=== PATIENT | male | born 1980 | race African-American/Black ===

== ENCOUNTER 2018-04-26 23:15 | Emergency (ER) | payer BC ==
[2018-04-26 23:51] LABS: Absolute Lymphocytes (CBC) 3.1 K/uL (0.7-4.9); Absolute Monocytes 0.8 K/uL (0.1-1.3); Absolute Neutrophil 6.5 K/uL (1.8-8.0); Basophils % 1.2 % (0-1.3); Hematocrit 47.4 % (39.6-49.0); Lymphocytes % 28.1 % (15.3-44.8); MPV 7.9 fL (7.6-11.3); Monocytes % 7.5 % (3.3-12.3)
[2018-04-26 23:54] LABS: Protime INR 0.96
[2018-04-27 00:10] LABS: ALT/SGPT 58 U/L (12-78); AST/SGOT 26 U/L (15-37); Albumin 3.9 g/dL (3.4-5.0); Alkaline Phosphatase 49 U/L (45-117); BUN Blood Urea Nitrogen 11 mg/dL (7-18); Bicarbonate 26 mmol/L (21-32); Bilirubin Direct < 0.1 mg/dL (0-0.2); Bilirubin Total 0.3 mg/dL (0.2-1.0); Glucose Level 104 mg/dL (74-106); Potassium 3.6 mmol/L (3.5-5.1); Protein, Total 7.3 g/dL (6.4-8.2); Sodium Level 140 mmol/L (136-145); Troponin (Emerg Dept Use Only) < 0.02 ng/mL (0.0-0.045)
[2018-04-27 00:16] LABS: NT PRO-BNP < 5 pg/mL (<125)
[2018-04-27 01:03] LABS: Urine Blood NEGATIVE (NEG); Urine Glucose NEGATIVE (NEG); Urine Protein NEGATIVE (NEG); Urine pH 5.5 (5.0-7.0)
[2018-04-27 01:04] LABS: Barbiturates NEGATIVE (NEGATIVE); Benzodiazepines NEGATIVE (NEGATIVE); Cocaine NEGATIVE (NEGATIVE); METHAMPHETAM NEGATIVE (NEGATIVE); Methadone NEGATIVE (NEGATIVE); Opiates NEGATIVE (NEGATIVE); Phencyclidine NEGATIVE (NEGATIVE); THC Cannibis NEGATIVE (NEGATIVE)
--- NOTE | 2018-04-27 01:49 | EDPHYS ---
Physician Documentation [facility] Name: Narendra Camacho Age: 38 yrs Sex: Male : 1980 Arrival Date: 04/26/2018 Time: 23:16 Bed 4 Private MD: Tank Rodriguez H ED Physician Luis Gutiérrez HPI: 04/26 23:48 This 38 yrs old Black Male presents to ER via Ambulatory with complaints of Chest Pain. pkl 23:48 The patient or guardian reports chest pain that is located primarily in the substernal pkl area, epigastric area. Onset: just prior to arrival, 1 hour(s) ago, and improved. The pain does not radiate. Associated signs and symptoms: The patient has no apparent associated signs or symptoms. The chest pain is described as tightness. Patient said he felt lightheaded several days ago. Historical: - Allergies: 23:27 No Known Allergies; bb - Home Meds: 23:27 Lisinopril Oral [Active]; bb - PMHx: 23:27 Hypertension; bb - PSHx: 23:27 None; bb - Immunization history:: Adult Immunizations up to date. - Social history:: Smoking status: Patient uses tobacco products, smokes one-half pack cigarettes per day, Patient/guardian denies using alcohol, street drugs. - Ebola Screening: : No symptoms or risks identified at this time. ROS: 23:48 Eyes: Negative for injury, pain, redness, and discharge, ENT: Negative for injury, pkl pain, and discharge, Neck: Negative for injury, pain, and swelling. 23:48 Cardiovascular: Positive for chest pain. 23:48 Respiratory: Negative for cough, shortness of breath. 23:48 Abdomen/GI: Negative for abdominal pain, nausea, vomiting, and diarrhea. 23:48 Back: Negative for acute changes. 23:48 : Negative for urinary symptoms. 23:48 MS/extremity: Negative for acute changes. 23:48 Skin: Negative for rash. 23:48 Neuro: Negative for altered mental status. Exam: 23:48 Head/Face: Normocephalic, atraumatic. Eyes: Pupils equal round and reactive to light, pkl extra-ocular motions intact. Lids and lashes normal. Conjunctiva and sclera are non-icteric and not injected. Cornea within normal limits. Periorbital areas with no swelling, redness, or edema. ENT: Nares patent. No nasal discharge, no septal abnormalities noted. Tympanic membranes are normal and external auditory canals are clear. Oropharynx with no redness, swelling, or masses, exudates, or evidence of obstruction, uvula midline. Mucous membranes moist. Neck: Trachea midline, no thyromegaly or masses palpated, and no cervical lymphadenopathy. Supple, full range of motion without nuchal rigidity, or vertebral point tenderness. No Meningismus. Chest/axilla: Normal chest wall appearance and motion. Nontender with no deformity. No lesions are appreciated. Cardiovascular: Regular rate and rhythm with a normal S1 and S2. No gallops, murmurs, or rubs. Normal PMI, no JVD. No pulse deficits. Respiratory: Lungs have equal breath sounds bilaterally, clear to auscultation and percussion. No rales, rhonchi or wheezes noted. No increased work of breathing, no retractions or nasal flaring. Abdomen/GI: Soft, non-tender, with normal bowel sounds. No distension or tympany. No guarding or rebound. No evidence of tenderness throughout. Back: No spinal tenderness. No costovertebral tenderness. Full range of motion. Skin: Warm, dry with normal turgor. Normal color with no rashes, no lesions, and no evidence of cellulitis. MS/ Extremity: Pulses equal, no cyanosis. Neurovascular intact. Full, normal range of motion. Neuro: Awake and alert, GCS 15, oriented to person, place, time, and situation. Cranial nerves II-XII grossly intact. Motor strength 5/5 in all extremities. Sensory grossly intact. Cerebellar exam normal. Normal gait. Vital Signs: 23:27 BP 148 / 97; Pulse 98; Resp 16 S; Temp 98.3(O); Pulse Ox 97% on R/A; Weight 104.33 kg bb (R); Height 5 ft. 6 in. (167.64 cm) (R); Pain 3/10; 04/27 00:39 BP 135 / 77; Pulse 70; Resp 22; Temp 98.3; Pulse Ox 97% on R/A; Pain 0/10; ak1 04/26 23:27 Body Mass Index 37.12 (104.33 kg, 167.64 cm) bb MDM: 04/26 23:22 Patient medically screened. [facility] 04/27 01:30 Data reviewed: vital signs, nurses notes, lab test result(s), EKG, radiologic studies. [facility] 04/26 23:35 Order name: Basic Metabolic Panel; Complete Time: 00:41 04/26 23:35 Order name: CBC with Diff; Complete Time: 00:41 04/26 23:35 Order name: LFT's; Complete Time: 00:41 04/26 23:35 Order name: Magnesium; Complete Time: 00:41 04/26 23:35 Order name: NT PRO-BNP; Complete Time: 00:41 04/26 23:35 Order name: PT-INR; Complete Time: 00:41 04/26 23:35 Order name: Troponin (emerg Dept Use Only); Complete Time: 00:41 04/26 23:35 Order name: XRAY Chest (1 view) 04/26 23:35 Order name: EKG; Complete Time: 23:36 04/26 23:51 Order name: UDS; Complete Time: 01:10 [facility] 04/26 23:51 Order name: D-Dimer; Complete Time: 00:41 [facility] 04/27 00:56 Order name: Urine Dipstick--Ancillary (enter results); Complete Time: 01:10 [facility] 04/27 00:57 Order name: Troponin (emerg Dept Use Only); Complete Time: 01:46 [facility] 04/26 23:35 Order name: Cardiac monitoring; Complete Time: 23:42 04/26 23:35 Order name: EKG - Nurse/Tech; Complete Time: 23:42 04/26 23:35 Order name: IV Saline Lock; Complete Time: 23:42 04/26 23:35 Order name: Labs collected and sent; Complete Time: 23:57 04/26 23:35 Order name: O2 Per Protocol; Complete Time: 23:42 04/26 23:35 Order name: O2 Sat Monitoring; Complete Time: 23:42 bb Administered Medications: No medications were administered Disposition: 04/27/18 01:48 Discharged to Home. Impression: Chest pain. - Condition is Stable. - Medication Reconciliation Form, Thank You Letter, Antibiotic Education, Prescription Opioid Use form. - Follow up: Ghassan Hayes MD; When: 2 - 3 days; Reason: Re-evaluation by your physician. - Problem is new. - Symptoms are resolved. Signatures: Dispatcher [employer] EDLuis Palacios MD MD pkl Stephanie Ulrich, OSVALDO RN Karishma Cummings RN RN ak1 Corrections: (The following items were deleted from the chart) 02:09 01:48 04/27/2018 01:48 Discharged to Home. Impression: Chest pain. Condition is Stable. ak1 Forms are Medication Reconciliation Form, Thank You Letter, Antibiotic Education, Prescription Opioid Use. Follow up: Ghassan Hayes; When: 2 - 3 days; Reason: Re-evaluation by your physician. Problem is new. Symptoms are resolved. pkl
--- NOTE | 2018-04-27 01:49 | ER ---
Nurse's Notes [facility] Name: Narendra Camacho Age: 38 yrs Sex: Male : 1980 Arrival Date: 04/26/2018 Time: 23:16 Bed 4 Private MD: Tank Rodriguez H Diagnosis: Chest pain Presentation: 04/26 23:23 Presenting complaint: Patient states: he was passenger in car going home and started bb having chest pain approx 30 mins ago although chest pain has decreased now denies nausea, vomiting, fever, spouse states pt has been feeling light-headed for the last several days. Transition of care: patient was not received from another setting of care. Onset of symptoms was April 26, 2018. Risk Assessment: Do you want to hurt yourself or someone else? Patient reports no desire to harm self or others. Initial Sepsis Screen: Does the patient meet any 2 criteria? No. Patient's initial sepsis screen is negative. Does the patient have a suspected source of infection? No. Patient's initial sepsis screen is negative. Care prior to arrival: None. 23:23 Method Of Arrival: Ambulatory bb 23:23 Acuity: DIOR 3 bb Triage Assessment: 23:38 General: Appears in no apparent distress. Behavior is calm, cooperative. Pain: Denies ak1 pain. EENT: No signs and/or symptoms were reported regarding the EENT system. Neuro: No deficits noted. 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 pt denies pain at this time. pt denies N/V. pt denies SOB. Respiratory: No deficits noted. GI: No signs and/or symptoms were reported involving the gastrointestinal system. : No signs and/or symptoms were reported regarding the genitourinary system. Derm: No signs and/or symptoms reported regarding the dermatologic system. Musculoskeletal: No signs and/or symptoms reported regarding the musculoskeletal system. Historical: - Allergies: 23:27 No Known Allergies; bb - Home Meds: 23:27 Lisinopril Oral [Active]; bb - PMHx: 23:27 Hypertension; bb - PSHx: 23:27 None; bb - Immunization history:: Adult Immunizations up to date. - Social history:: Smoking status: Patient uses tobacco products, smokes one-half pack cigarettes per day, Patient/guardian denies using alcohol, street drugs. - Ebola Screening: : No symptoms or risks identified at this time. Screenin:35 Abuse screen: Denies threats or abuse. Denies injuries from another. Nutritional ak1 screening: No deficits noted. Tuberculosis screening: No symptoms or risk factors identified. Fall Risk None identified. Assessment: 23:35 General: Appears in no apparent distress. Pain: pt stated pain has resolved. 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 pt denies N/V. pt denies SOB Pain began 1 hour ago. Neuro: No deficits noted. Cardiovascular: Reports chest pain, epigastric pain Capillary refill < 3 seconds. Respiratory: No deficits noted. GI: No signs and/or symptoms were reported involving the gastrointestinal system. : No signs and/or symptoms were reported regarding the genitourinary system. EENT: No signs and/or symptoms were reported regarding the EENT system. Derm: No signs and/or symptoms reported regarding the dermatologic system. Musculoskeletal: No signs and/or symptoms reported regarding the musculoskeletal system. 04/27 01:12 Reassessment: Patient appears in no apparent distress at this time. No changes from ak1 previously documented assessment. pt denies pain. pt repeat EKG finished. repeat trop sent to lab. pt and family informed of wait for lab results. 02:08 Reassessment: Patient appears in no apparent distress at this time. No changes from ak1 previously documented assessment. Patient and/or family updated on plan of care and expected duration. Pain level reassessed. Patient is alert, oriented x 3, equal unlabored respirations, skin warm/dry/pink. Patient denies pain at this time. Patient states feeling better. Patient states symptoms have improved. Vital Signs: 04/26 23:27 BP 148 / 97; Pulse 98; Resp 16 S; Temp 98.3(O); Pulse Ox 97% on R/A; Weight 104.33 kg bb (R); Height 5 ft. 6 in. (167.64 cm) (R); Pain 3/10; 04/27 00:39 BP 135 / 77; Pulse 70; Resp 22; Temp 98.3; Pulse Ox 97% on R/A; Pain 0/10; ak1 04/26 23:27 Body Mass Index 37.12 (104.33 kg, 167.64 cm) [facility] ED Course: 04/26 23:16 Patient arrived in ED. es 23:16 Tank Rodriguez DO is Private Physician. es 23:22 Luis Gutiérrez MD is Attending Physician. pkl 23:27 Triage completed. bb 23:27 Arm band placed on Patient placed in an exam room, on a stretcher, on panel monitor, bb on pulse oximetry. EKG completed in triage. Results shown to MD. Family accompanied patient. 23:35 Karishma Gates, RN is Primary Nurse. ak1 23:35 Patient has correct armband on for positive identification. Placed in gown. Bed in low ak1 position. Call light in reach. Side rails up X 1. panel monitor on. Pulse ox on. NIBP on. Lights dimmed. 23:35 EKG done, by ED staff, reviewed by Luis Gutiérrez MD. Inserted saline lock: 20 gauge in right ak1 antecubital area, using aseptic technique. Patient maintains SpO2 saturation greater than 95% on room air. 04/27 00:04 X-ray completed. Portable x-ray completed in exam room. Patient tolerated procedure sg4 well. 00:09 XRAY Chest (1 view) In Process Unspecified. EDMS 00:42 UDS Sent. ak1 01:47 Ghassan Hayes MD is Referral Physician. pkl 02:07 No provider procedures requiring assistance completed. intact, bleeding controlled, No ak1 redness/swelling at site. Pressure dressing applied. Administered Medications: No medications were administered Outcome: 01:48 Discharge ordered by . pkl 02:08 Discharged to home ambulatory, with family. ak1 02:08 Condition: good 02:08 Discharge instructions given to patient, family, Instructed on discharge instructions, follow up and referral plans. Demonstrated understanding of instructions, follow-up care. 02:09 Patient left the ED. ak1 Signatures: Dispatcher [employer] EDMS Luis Gutiérrez MD MD pkDejah Degroot Brenda RN RN Karishma Cummings, OSVALDO RN Kenya Vargas sg4
--- NOTE | 2018-04-27 10:13 | EKG ---
Test Date: 2018-04-26 Test Time: 23:21:33 Evaporator Operator Molasses: CHRISTOPHER MEASUREMENT RESULTS: Intervals: Rate: 89 MA: 152 QRSD: 74 QT: 340 QTc: 413 [place]: P: 41 MA: 152 QRS: 76 T: 53 INTERPRETIVE STATEMENTS: Normal sinus rhythm Normal ECG No previous ECG available for comparison Electronically Signed On 04-27-18 10:12:57 ACCESS DIRECTOR by Ghassan Hayes
--- NOTE | 2018-04-27 11:44 | RAD REPORT ---
EXAM DESCRIPTION: RAD - Chest Single View - 04/27/2018 12:04 am CLINICAL HISTORY: CHEST PAIN Chest pain. COMPARISON: No comparisons FINDINGS: Portable technique limits examination quality. The lungs are grossly clear. The heart is normal in size. No displaced fractures. IMPRESSION: No acute intrathoracic process suspected.
== END 2018-04-27 02:09 | disposition home or self-care (01) ==
LOC: ER 23:15
DX: R07.9 Chest pain, unspecified (principal); I10 Essential (primary) hypertension; F17.210 Nicotine dependence, cigarettes, uncomplicated; Z79.899 Other long term (current) drug therapy
CPT/HCPCS: 36415; 71045; 80048; 80076; 80307; 81003; 83735; 83880; 84484; 85025; 85379; 85610; 93005; 99285